=== PATIENT | female | born 1975 | race Hispanic/Latino ===

== ENCOUNTER 2018-10-02 12:57 | Emergency (ER) | payer SELFPAY ==
[2018-10-02 13:26] LABS: Bilirubin Small (Negative); Blood, Urine Negative (Negative); Glucose, Urine (Dipstick) >=1000 mg/dL (Negative); Leukocyte Negative (Negative); Nitrite Negative (Negative); Protein, Urine (Dipstick) > or equal to 300 mg/dL (Neg-Trace); Urobilinogen 0.2 mg/dL (0.2-1.0)
[2018-10-02 13:29] LABS: Clarity Hazy (Clear); Specific Gravity, Urine 1.046 (1.002-1.036)
[2018-10-02 13:31] LABS: Bacteria/HPF Rare-Few HPF (None Seen); RBC/HPF None Seen HPF (0-3); WBC/HPF 0-3 HPF (0-3)
== END 2018-10-02 13:44 | disposition home or self-care (01) ==
LOC: MADERS 12:57
DX: S39.012A Strain of muscle, fascia and tendon of lower back, initial encounter (principal); E11.9 Type 2 diabetes mellitus without complications; I10 Essential (primary) hypertension; Z79.899 Other long term (current) drug therapy; Z79.84 Long term (current) use of oral hypoglycemic drugs; X58.XXXA Exposure to other specified factors, initial encounter
CPT/HCPCS: 81003; 81015; 99283

== ENCOUNTER 2023-12-04 17:08 | Emergency (ER) | payer OTHER | END 2023-12-04 18:35 | disposition home or self-care (01) | LOC: MADERS 17:08 | DX: S66.001A Unspecified injury of long flexor muscle, fascia and tendon of right thumb at wrist and hand level, initial encounter (principal); E78.00 Pure hypercholesterolemia, unspecified; E11.9 Type 2 diabetes mellitus without complications; I10 Essential (primary) hypertension; Z79.899 Other long term (current) drug therapy; W01.0XXA Fall on same level from slipping, tripping and stumbling without subsequent striking against object, initial encounter ==